=== PATIENT | male | born 1980 | race Two or more races ===

== ENCOUNTER 2017-07-08 13:00 | Inpatient (IN) | payer OTHER ==
[~2017-07-08] VITALS: Ht 188 cm; Wt 111.1 kg
--- NOTE | 2017-07-08 13:01 | NUR ---
ANDRES FROM [facility] DT ALTERED MENTAL STATUS. PATIENT RECEIVED ALTERED, RESPONSE TO PAIN ONLY. PATIENT IS SATING WELL ON ROOM AIR. SKIN IS WARM TO TOUCH AND NON DIAPHORETIC. AFEBRILE. CONNECTED PT TO TELE MONITOR. NOTED TACHY. MD DELVALLE NOTIFIED
--- NOTE | 2017-07-08 13:12 | NUR ---
PATIENT NOTED WITH SEIZURE LIKE ACTIVITY. REMAINS ALTERED. MD DELVALLE MADE AWARE
--- NOTE | 2017-07-08 13:13 | NUR ---
MD DELVALLE AT BEDSIDE
--- NOTE | 2017-07-08 13:20 | NUR ---
PATIENT WAS TAKEN TO CT
--- NOTE | 2017-07-08 13:20 | NUR ---
IV LINE STARTED BLOOD DRAWN AND SENT TO LAB.
[2017-07-08 13:29] LABS: BASOPHILS % (AUTO) 0.3 % (0.0-2.0); EOSINOPHILS # (AUTO) 0.1 /CMM (0.0-0.7); EOSINOPHILS % (AUTO) 0.6 % (0.0-6.0); HEMATOCRIT 46 % (39-51); HEMOGLOBIN 15.1 g/dL (13.5-17.5); LYMPHOCYTES # (AUTO) 1.7 /CMM (0.8-4.8); LYMPHOCYTES % (AUTO) 18.8 % (20.0-44.0); MEAN CORPUSCULAR HEMOGLOBIN 26 PG (26.0-33.0); MEAN CORPUSCULAR HGB CONC 33 g/dl (31.0-36.0); MEAN CORPUSCULAR VOLUME 81 fL (80-96); MONOCYTES # (AUTO) 0.8 /CMM (0.1-1.30); MONOCYTES % (AUTO) 9.3 % (2.0-12.0); NEUTROPHILS # (AUTO) 6.4 /CMM (1.8-8.9); PLATELET COUNT (AUTO) 294 /CMM (150-450); RDW COEFFICIENT OF VARIATION 13.8 (11.5-15.0)
[2017-07-08] MEDS ORDERED: LORAZEPAM INJ 2 MG/ML VIAL IV ONE (13:30)
[2017-07-08] MEDS ORDERED: IV NS 0.9% 1,000 ML BAG IV ONE ×2 (13:30→15:00)
--- NOTE | 2017-07-08 13:37 | NUR ---
URINE SAMPLE SENT TO LAB
[2017-07-08 13:39] LABS: CALCIUM, SERUM 9.3 mg/dL (8.5-10.1); CARBON DIOXIDE 24 mmol/L (21-32); CHLORIDE 102 mmol/L (98-107); CREATININE 1.4 mg/dL (0.6-1.3); GLUCOSE 97 mg/dL (74-106); POTASSIUM 3.7 mmol/L (3.5-5.1); SODIUM SERUM 139 mmol/L (136-145); UREA NITROGEN, BLOOD 15 mg/dL (7-18)
[2017-07-08 13:43] LABS: INR 1.03 (0.87-1.13); PROTHROMBIN TIME 10.7 SECS (9.5-12.7)
[2017-07-08 13:44] LABS: APPEARANCE,URINE Clear (CLEAR); BILIRUBIN,URINE Negative (NEGATIVE); BLOOD, URINE Trace-lysed Ery/uL (NEGATIVE); COLOR,URINE Yellow (YELLOW); KETONES,URINE Trace (NEGATIVE); LEUKOCYTE ESTERASE ,URINE Negative (NEGATIVE); NITRITE, URINE Negative (NEGATIVE); PROTEIN,URINE 30 mg/dl (NEGATIVE); UGLUCOSE Negative (NEGATIVE); UROBILINOGEN,URINE 0.2 EU/dL (0.2)
[2017-07-08 13:45] LABS: ALANINE AMINOTRANSFERASE 22 U/L (12-78); ALBUMIN 4.2 g/dL (3.4-5.0); ALKALINE PHOSPHATASE 68 U/L (46-116); ASPARTATE AMINOTRANSFERASE 18 U/L (15-37); BILIRUBIN,TOTAL 0.3 mg/dL (0.2-1.0); TOTAL PROTEIN, SERUM 8.1 g/dL (6.4-8.2)
[2017-07-08 13:47] LABS: BACTERIA,URINE Rare /HPF (None Seen); RBC,URINE 0-2 /HPF (0-2); SQUAMOUS EPITHELIAL CELL,UR Rare /HPF (None Seen); WBC,URINE 0-2 /HPF (0-3)
[2017-07-08 13:47] LABS: TROPONIN I < 0.017 ng/mL (0.00-0.056)
[2017-07-08 15:47] LABS: ACETAMINOPHEN < 10 ug/ml (10-30); ALCOHOL, BLOOD < 3 mg/dL (0-0); SALICYLATE 1.3 mg/dL (2.8-20.0)
[2017-07-08] MEDS ORDERED: ZOLPIDEM TARTRATE 5 MG TABLET PO PRN (16:30)
[2017-07-08] MEDS ORDERED: ACETAMINOPHEN 325 MG TABLET PO PRN (16:30)
[2017-07-08] MEDS ORDERED: MAG HYDROX/AL HYDROX/SIMETH 30 ML UDC PO PRN (16:30)
[2017-07-08] MEDS ORDERED: ONDANSETRON HCL/PF 4 MG/2 ML VIAL IVP PRN (16:30)
[2017-07-08] MEDS ORDERED: Z GUARD REMEDY 2 OZ OINT TP PRN (16:30)
[2017-07-08] MEDS ORDERED: MAGNESIUM HYDROXIDE 30 ML UDC PO PRN (16:30)
[2017-07-08 16:33] LABS: THYROID STIMULATING HORMONE 0.918 uIU/mL (0.358-3.74)
--- NOTE | 2017-07-08 17:30 | NUR ---
MS RN RECEIVED A NEW ADMISSION, 36 YEAR OLD PATIENT
--- NOTE | 2017-07-08 17:30 | NUR ---
MS RN CAME FROM ER, W/ DX OF SEIZURE,ALTERED MENTAL STATUS,VERY CONFUSE, BROUGHT BY ER W/ LEATHER RESTRAINT, WAS TOLD THAT HE PULLED HIS IV THAT'S WHY HE IS ON TEMPORARY RESTRAINT DURING TRANSPORTATION, WILL MONITOR PATIENT.
--- NOTE | 2017-07-08 18:00 | NUR ---
MS RN PLACED IN BED, W/ SITTER, PATIENT HAD SEIZURE OF MINUTE, V/S STABLE, OBSERVED, NO DISTRESS NOTED.TEXTED DR. BHAT FOR ATIVAN ORDER, AWAITING FOR HIM TO RESPOND.
[2017-07-08] MEDS: IV NS 0.9% 1,000 ML IV PRN (18:29)
[2017-07-08] MEDS: ENOXAPARIN SODIUM 40 MG/0.4 ML DISP.SYRIN SQ SCH (18:30)
[2017-07-08 18:46] VITALS: BP 142/92
--- NOTE | 2017-07-08 19:08 | NUR ---
MS RN ON BED, NO DISTRESS, WILL MONITOR PATIENT.
--- NOTE | 2017-07-08 19:30 | NUR ---
DENTAL PROFESSIONAL - INITIAL NOTES PATIENT IN BED. ALERT AND ORIENTED X1 TO NAME. TELE READING OF SINUS TACH 97. NO SIGNIFICANT CHANGES NOTED AT THIS TIME. BED IN LOW POSITION AND LOCKED. SIDERAILS X2 UP. WILL CONTINUE TO MONITOR PATIENT FOR ANY EPISODES OF SEIZURE.
[2017-07-08 20:00] VITALS: BP 135/95
[2017-07-08] MEDS: LORAZEPAM INJ 2 MG/ML VIAL IV PRN ×2 (20:26→23:47)
--- NOTE | 2017-07-08 20:28 | NUR ---
Patient had an episode of seizure. Lasted for 25 seconds. Patient now alert and oriented x1. No distress noted. Ativan 1mg IV for seizure administer. Will continue to monitor patient.
--- NOTE | 2017-07-08 23:50 | NUR ---
Patient had another episode of seizure which lasted 10 seconds. Patient's VS are as follows: BP: 114/53, GA: 107, RR: 18, Temp: 97.5, saturation of 95% on room air. Ativan administered for seizure. Patient also had an episode of coffee ground vomiting. Will inform [facility] camera control operator.
[2017-07-09] VITALS: BP 114/53
--- NOTE | 2017-07-09 00:15 | NUR ---
Spoke to Dr. Morales regarding patient's seizure x2, with the recent seizure accompanied by coffee ground vomiting. Per MD, start patient on Keppra 500mg IV Q12H with first dose now, and Protonix 40mg IV daily. No significant changes noted at this time. Patient remains stable. Will continue to monitor patient.
[2017-07-09] MEDS ORDERED: LEVETIRACETAM (500MG) 500 MG/5 ML VIAL IV ONE (00:16)
[2017-07-09] MEDS ORDERED: LEVETIRACETAM (500MG) 500 MG in IV NS 0.9% 100 ML IV SCH (00:30)
[2017-07-09 04:00] VITALS: BP 120/61
[2017-07-09 06:50] LABS: BASOPHILS % (AUTO) 0.3 % (0.0-2.0); HEMATOCRIT 40 % (39-51); HEMOGLOBIN 13.2 g/dL (13.5-17.5); LYMPHOCYTES # (AUTO) 1.3 /CMM (0.8-4.8); LYMPHOCYTES % (AUTO) 9.4 % (20.0-44.0); MEAN CORPUSCULAR HEMOGLOBIN 27 PG (26.0-33.0); MEAN CORPUSCULAR HGB CONC 33 g/dl (31.0-36.0); MEAN CORPUSCULAR VOLUME 81 fL (80-96); MONOCYTES % (AUTO) 6.9 % (2.0-12.0); NEUTROPHILS # (AUTO) 11.9 /CMM (1.8-8.9); NEUTROPHILS % (AUTO) 83.4 % (43.0-81.0); PLATELET COUNT (AUTO) 231 /CMM (150-450); RDW COEFFICIENT OF VARIATION 14.6 (11.5-15.0); RED BLOOD CELL COUNT(AUTO) 4.87 MIL/uL (4.5-6.0); WHITE BLOOD COUNT (AUTO) 14.3 K/uL (4.3-11.0)
[2017-07-09 07:00] LABS: ALBUMIN 3.8 g/dL (3.4-5.0); BILIRUBIN,DIRECT 0.1 mg/dL (0.0-0.2); BILIRUBIN,TOTAL 0.6 mg/dL (0.2-1.0); CALCIUM, SERUM 8.7 mg/dL (8.5-10.1); CREATININE 0.9 mg/dL (0.6-1.3); MAGNESIUM 1.8 mg/dL (1.8-2.4); PHOSPHORUS 3.3 mg/dL (2.5-4.9); POTASSIUM 4.1 mmol/L (3.5-5.1)
--- NOTE | 2017-07-09 07:01 | NUR ---
WINERY CELLAR HAND - CLOSING NOTES PATIENT IN BED WITH 1:1 SITTER. NO S/S OF SOB OR ANY DISCOMFORT NOTED. TELE READING OF SR 86. PATIENT IS STILL ALTERED. BED IN LOW POSITION AND LOCKED. SIDERAILS X 2 UP. WILL ENDORSE TO MORNING NURSE FOR CONTINUITY OF CARE.
[2017-07-09 07:15] LABS: CREATINE KINASE MB 1.2 ng/mL (0-3.6)
[2017-07-09] MEDS ORDERED: PANTOPRAZOLE 40 MG TABLET.DR PO SCH (07:30)
--- NOTE | 2017-07-09 07:45 | NUR ---
RN NOTES RECEIVED PT. PT IS STABLE AND RESTING IN BED. SITTER IS AT BEDSIDE. PT IS A/OX1 STILL CONFUSED. NO S/S OF RESPIRATORY DISTRESS. PT DOES NOT APPEAR TO BE ANXIOUS OR IN PAIN. IV ACCESS LOCATED ON RIGHT AC 20G RUNNING NS AT 100 ML/HR. SAFETY MEASURES IN PLACE, CALL LIGHT WITHIN REACH WILL CONTINUE TO MONITOR.
[2017-07-09] MEDS: LEVETIRACETAM (500MG) 500 MG in IV NS 0.9% 100 ML IV SCH ×2 (09:17→21:14)
[2017-07-09] MEDS: PANTOPRAZOLE 40 MG VIAL IV SCH (09:18)
--- NOTE | 2017-07-09 18:48 | NUR ---
RN CLOSING NOTES PT IS IN BED SLEEPING. PT HAS BEEN SLEEPING FOR THE LAST 4 HOURS. EASILY AROUSABLE HOWEVER PT FALLS BACK ASLEEP QUICKLY. A/OX2. IV ACCESS WAS REMOVED BY PT. PT IS SCHEDULED TO RECEIVE A LUMBAR PUNCTURE HOWEVER RADIOLOGY HAS RESCHEDULED FOR 07/10 IN THE AM. HELD TODAY DUE TO LOVENOX ADMIN ON 07/08, RADIOLOGY HAS REQUESTED TO WAIT AT LEAST 24 HOURS PRIOR TO PROCEDURE. SAFETY MEASURES IN PLACE, CALL LIGHT WITHIN REACH. WILL ENDORSE TO POT ANNEALER FOR CHRISTIE.
--- NOTE | 2017-07-09 19:30 | NUR ---
RN NOTES RECEIVED PT IN BED, ASLEEP AT THIS TIME, AROUSABLE. A/O X 2, VERBALLY RESPONSIVE. SITTER AT BEDSIDE FOR SAFETY. NO S/S OF RESPIRATORY DISTRESS OR SOB NOTED. NO S/S OF PAIN OR DISCOMFORT AT THIS TIME. SAFETY MEASURES IN PLACE, CALL LIGHT WITHIN REACH WILL CONTINUE TO MONITOR.
[2017-07-09 20:00] VITALS: BP 108/64
[2017-07-09] MEDS: ENOXAPARIN SODIUM 40 MG/0.4 ML DISP.SYRIN SQ SCH (20:51)
--- NOTE | 2017-07-09 20:52 | NUR ---
LOVENOX 40 MG SQ HELD, PT WITH ORDER FOR LUMBAR PUNCTURE , CHARGE NURSE CRISTIANE AWARE.
--- NOTE | 2017-07-09 20:55 | NUR ---
INSERTED IV ON RIGHT WRIST G #20 X 1 ATTEMPT, WITH GOOD VENOUS RETURN , PT BARBARA PROCEDURE WELL.
[2017-07-10] MEDS: IV NS 0.9% 1,000 ML IV PRN ×2 (05:00→17:29)
--- NOTE | 2017-07-10 06:46 | NUR ---
RN NOTES PT IN BED, ASLEEP AT THIS TIME, AROUSABLE. STABLE. A/O X 2, VERBALLY RESPONSIVE. SITTER AT BEDSIDE FOR SAFETY. NO S/S OF RESPIRATORY DISTRESS OR SOB NOTED. NO EPISODE OF SEIZURE NOTED. NO S/S OF PAIN OR DISCOMFORT AT THIS TIME. SAFETY MEASURES IN PLACE, CALL LIGHT WITHIN REACH WILL ENDORSE TO NEXT SHIFT FOR CHRISTIE.
--- NOTE | 2017-07-10 07:30 | NUR ---
RN OPENING NOTES 1:1 SITTER AT BEDSIDE. PT. IS IN BED AWAKE, A&OX3. BREATHING UNLABORED, AND EVENLY ON ROOM AIR. NO S/S OF ACUTE DISTRESS. IV FLUIDS RUNNING AT 100 ML/HR. BED IS IN LOWEST, AND LOCKED POSITION. 2 SIDE RAILS UP, AND INSTRUCTED PT. TO USE CALL LIGHT FOR ASSISTANCE. ALL NEEDS MET. WILL CONTINUE TO ASSESS AND MONITOR.
[2017-07-10 08:00] VITALS: BP 121/72
[2017-07-10] MEDS: LEVETIRACETAM (250 MG) 250 MG TABLET PO SCH ×2 (08:36→21:21)
[2017-07-10] MEDS: PANTOPRAZOLE 40 MG VIAL IV SCH (08:37)
[2017-07-10 11:12] LABS: BASOPHILS % (AUTO) 0.4 % (0.0-2.0); EOSINOPHILS % (AUTO) 0.4 % (0.0-6.0); HEMATOCRIT 39 % (39-51); HEMOGLOBIN 12.9 g/dL (13.5-17.5); LYMPHOCYTES # (AUTO) 1.4 /CMM (0.8-4.8); LYMPHOCYTES % (AUTO) 15.9 % (20.0-44.0); MEAN CORPUSCULAR HEMOGLOBIN 27 PG (26.0-33.0); MEAN CORPUSCULAR HGB CONC 33 g/dl (31.0-36.0); MEAN CORPUSCULAR VOLUME 82 fL (80-96); MONOCYTES # (AUTO) 0.8 /CMM (0.1-1.30); MONOCYTES % (AUTO) 8.6 % (2.0-12.0); NEUTROPHILS # (AUTO) 6.8 /CMM (1.8-8.9); NEUTROPHILS % (AUTO) 74.7 % (43.0-81.0); PLATELET COUNT (AUTO) 227 /CMM (150-450); RDW COEFFICIENT OF VARIATION 14.6 (11.5-15.0); RED BLOOD CELL COUNT(AUTO) 4.79 MIL/uL (4.5-6.0); WHITE BLOOD COUNT (AUTO) 9.1 K/uL (4.3-11.0)
[2017-07-10 11:22] LABS: CALCIUM, SERUM 8.3 mg/dL (8.5-10.1); POTASSIUM 3.7 mmol/L (3.5-5.1)
[2017-07-10 16:00] VITALS: BP 130/81
--- NOTE | 2017-07-10 18:55 | NUR ---
RN CLOSING NOTES 1:1 SITTER AT BEDSIDE. PT. IS IN BED AWAKE, A&OX3. BREATHING UNLABORED, AND EVENLY ON ROOM AIR. NO S/S OF ACUTE DISTRESS. IV FLUIDS RUNNING AT 100 ML/HR. BED IS IN LOWEST, AND LOCKED POSITION. 2 SIDE RAILS UP, AND INSTRUCTED PT. TO USE CALL LIGHT FOR ASSISTANCE. ALL NEEDS MET. WILL ENDORSE REPORT TO NURSE.
--- NOTE | 2017-07-10 19:35 | NUR ---
MS RN OPENING NOTES PT IS IN BED AWAKE AND ALERT. BREATHING EVENLY AND UNLABORED ON RA. NO SIGNS OF SOB OR DISTRESS. IV FLUIDS RUNNING. SIDE RAILS PADDED FOR SEIZURE PRECAUTIONS. BED IS IN LOW AND LOCKED POSITION, CALL LIGHT WITHIN REACH. WILL CONTINUE TO MONITOR PT
[2017-07-10 20:00] VITALS: BP 119/77
[2017-07-10] MEDS: ENOXAPARIN SODIUM 40 MG/0.4 ML DISP.SYRIN SQ SCH (21:21)
[2017-07-11] MEDS: IV NS 0.9% 1,000 ML IV PRN (04:23)
--- NOTE | 2017-07-11 06:39 | NUR ---
MS RN CLOSING NOTE PT IS IN BED RESTING. NO SIGNS OF SOB OR DISTRESS. BREATHING EVENLY AND UNLABORED ON RA. IV ACCESS IS INTACT AND PATENT. NO ACUTE CHANGES THROUGHOUT THE SHIFT. BED IS IN LOW AND LOCKED POSITION, CALL LIGHT WITHIN REACH. WILL ENDORSE TO DAY SHIFT.
[2017-07-11 06:43] LABS: BASOPHILS % (AUTO) 0.5 % (0.0-2.0); EOSINOPHILS # (AUTO) 0.2 /CMM (0.0-0.7); EOSINOPHILS % (AUTO) 2.2 % (0.0-6.0); HEMATOCRIT 40 % (39-51); HEMOGLOBIN 13.1 g/dL (13.5-17.5); LYMPHOCYTES # (AUTO) 1.8 /CMM (0.8-4.8); LYMPHOCYTES % (AUTO) 24.5 % (20.0-44.0); MEAN CORPUSCULAR HEMOGLOBIN 27 PG (26.0-33.0); MEAN CORPUSCULAR HGB CONC 33 g/dl (31.0-36.0); MEAN CORPUSCULAR VOLUME 83 fL (80-96); MONOCYTES # (AUTO) 0.7 /CMM (0.1-1.30); MONOCYTES % (AUTO) 9.1 % (2.0-12.0); NEUTROPHILS # (AUTO) 4.8 /CMM (1.8-8.9); NEUTROPHILS % (AUTO) 63.7 % (43.0-81.0); PLATELET COUNT (AUTO) 227 /CMM (150-450); RDW COEFFICIENT OF VARIATION 14.6 (11.5-15.0); RED BLOOD CELL COUNT(AUTO) 4.79 MIL/uL (4.5-6.0); WHITE BLOOD COUNT (AUTO) 7.5 K/uL (4.3-11.0)
[2017-07-11 07:09] LABS: CALCIUM, SERUM 8.4 mg/dL (8.5-10.1); CREATININE 1.1 mg/dL (0.6-1.3)
--- NOTE | 2017-07-11 07:30 | NUR ---
MS RN RECEIVED ON BED,AWAKE ALERT,ORIENTED X3,NOT IN ANY FORM OF DISTRESS, RESPIRATIONS EVEN AND UNLABORED,NO SOB NOTED. LUNGS ARE CLEAR,ABDOMEN SOFT,POSITIVE BOWEL SOUNDS,DENIES PAIN AT THIS TIME, WILL MONITOR PATIENT.
[2017-07-11 08:00] VITALS: BP 114/70
[2017-07-11] MEDS: PANTOPRAZOLE 40 MG VIAL IV SCH (08:42)
[2017-07-11] MEDS: LEVETIRACETAM (250 MG) 250 MG TABLET PO SCH (08:42)
--- NOTE | 2017-07-11 09:00 | NUR ---
MS LAZCANO BREAKFAST SERVED,DUE MEDS GIVEN,TOLERATED WELL.
--- NOTE | 2017-07-11 11:00 | NUR ---
MS RN ON BED, NO DISTRESS.
[2017-07-11] MEDS ORDERED: LEVE500T9 PO (11:45)
--- NOTE | 2017-07-11 13:58 | NUR ---
MS RN PATIENT READY FOR DISCHARGE,INSTRUCTIONS GIVEN AND UNDERSTOOD.
--- NOTE | 2017-07-11 14:20 | NUR ---
MS RN WAS DISCHARGE TO BOARD AND CARE VIA TAXI, NO DISTRESS NOTED.
== END 2017-07-11 14:00 | disposition home or self-care (01) | DRG 775 ==
LOC: ER 13:01 → TELE 16:54 → MED 07-09 08:31
PROVIDERS: ADMIT Internal Medicine; ATTEND Internal Medicine
DX: F10.239 Alcohol dependence with withdrawal, unspecified (principal); N17.0 Acute kidney failure with tubular necrosis; G93.40 Encephalopathy, unspecified; E87.2 Acidosis; R65.10 Systemic inflammatory response syndrome (SIRS) of non-infectious origin without acute organ dysfunction; G40.909 Epilepsy, unspecified, not intractable, without status epilepticus
CPT/HCPCS: 36415; 70450-TC; 71010-TC; 80048-TC; 80076-TC; 80305; 81000-TC; 82550-TC; 82553-TC; 83605-TC; 83735-TC; 84100-TC; 84443-TC; 84484-TC; 85025-TC; 85730-TC; 87040-TC; 87081-TC; 87086-TC; 95819-TC; A4606; C9113; G0480; J1650; J1953; J2060; J7030; Z7610